=== PATIENT | female | born 1960 | race African-American/Black ===

== ENCOUNTER 2022-03-04 19:02 | Emergency (ER) | payer MEDICAID ==
[~2022-03-04] VITALS: Ht 172.7 cm; Wt 85.0 kg
[~2022-03-04 19:02] MED LIST: ASPI-1406; CENTRUM SILVER; PARO-41; SIMV10TA2; [UNRECOGNIZED DRUG - OTHER]; colace; lisinopril; tramadol
[2022-03-04 19:05] VITALS: BP 152/90
[2022-03-04 20:04] LABS: BASOPHILS % 0.3 % (0.0-2.0); EOSINOPHILS % 1.6 % (0.0-5.0); HEMATOCRIT. 41.5 % (36.0-48.0); HEMOGLOBIN. 13.7 g/dL (12.0-16.0); LYMPHOCYTES % 17.7 % (20.0-50.0); MEAN CORPUSCULAR HEMOGLOBIN 27.4 pg (28.0-32.0); MEAN CORPUSCULAR VOLUME 83.1 fL (81.0-99.0); MEAN PLATELET VOLUME 9.2 fl (7.4-10.4); MONOCYTES % 11.8 % (2.0-8.0); NEUTROPHILS % 68.6 % (40.0-76.0); PLATELET 292 x1000/uL (130-400); RED BLOOD CELL COUNT 4.99 mill/uL (4.2-5.4); RED CELL DISTRIBUTION WIDTH 15.6 % (11.6-14.6)
[2022-03-04 20:19] LABS: CHLORIDE 113 mEq/L (98-107)
[2022-03-04 20:25] LABS: ETHANOL BLOOD 119 mg/dL
[2022-03-04] MEDS ORDERED: POTASSIUM CHLORIDE 20MEQ TABLET SR PO ONE (20:45)
== END 2022-03-04 21:03 | disposition home or self-care (01) ==
LOC: ER 19:02
DX: T51.91XA Toxic effect of unspecified alcohol, accidental (unintentional), initial encounter (principal); E87.6 Hypokalemia; E11.9 Type 2 diabetes mellitus without complications; I25.2 Old myocardial infarction; Z88.6 Allergy status to analgesic agent; Z98.890 Other specified postprocedural states; Z86.73 Personal history of transient ischemic attack (TIA), and cerebral infarction without residual deficits; Z86.39 Personal history of other endocrine, nutritional and metabolic disease; I10 Essential (primary) hypertension; Y92.9 Unspecified place or not applicable
CPT/HCPCS: 36415; 80053; 80320; 85025; 93005; 99284; G0480

== ENCOUNTER 2025-06-29 15:18 | Emergency (ER) | payer MEDICARE, MEDICAID ==
[~2025-06-29] VITALS: Ht 160 cm; Wt 50.0 kg
[~2025-06-29 15:18] MED LIST changes: +AMLO5TAB88 MT; -ASPI-1406; +ASPI-1406 PO; +LEVO50TA8 MT; +SIMV-341 PO; -SIMV10TA2
[2025-06-29 15:30] VITALS: O2SAT 98
[2025-06-29 16:32] LABS: BASOPHILS % 0.4 % (0.0-2.0); EOSINOPHILS % 1.4 % (0.0-5.0); HEMATOCRIT. 36.6 % (36.0-48.0); HEMOGLOBIN. 12.0 g/dL (12.0-16.0); LYMPHOCYTES % 15.8 % (20.0-50.0); MEAN PLATELET VOLUME 9.2 fl (7.4-10.4); MONOCYTES % 11.4 % (2.0-8.0); NEUTROPHILS % 71.0 % (40.0-76.0); PLATELET 256 x1000/uL (130-400); RED BLOOD CELL COUNT 4.25 mill/uL (4.2-5.4); RED CELL DISTRIBUTION WIDTH 16.3 % (11.6-14.6)
[2025-06-29] MEDS: OXYCODONE HCL/ACETAMINOPHEN 5/325MG TABLET PO ONE (16:33)
[2025-06-29 16:50] LABS: UREA NITROGEN BLOOD 15.0 mg/dL (9-23)
[2025-06-29 16:56] LABS: CREATININE 1.5 mg/dL (0.6-1.0)
[2025-06-29] MEDS ORDERED: IBUP-2030 MT (18:25)
[2025-06-29] MEDS: HYDROCODONE/ACETAMINOPHEN 5/325MG TABLET PO ONE (18:36)
[2025-06-29 18:47] VITALS: BP 147/77; PULSE 61; RESP 16; TEMP 36.7; O2SAT 100
[2025-06-29 18:55] LABS: CLARITY URINE CLOUDY (CLEAR); COLOR URINE YELLOW (YELLOW)
[2025-06-29 18:58] LABS: SPECIFIC GRAVITY URINE >1.030 (1.005-1.030)
[2025-06-29 18:59] LABS: GLUCOSE URINE NEGATIVE (NEGATIVE); KETONES URINE TRACE (NEGATIVE); LEUKOCYTE ESTERASE URINE TRACE (NEGATIVE); NITRITE URINE POSITIVE (NEGATIVE); OCCULT BLOOD URINE 1+ (NEGATIVE); PH URINE 6.0 (4.5-8.0); PROTEIN URINE 2+ (NEGATIVE); UROBILINOGEN URINE 1.0 E.U./dL (0.2-1.0)
[2025-06-29 19:02] LABS: BACTERIA URINE 3+; SQUAMOUS EPITHELIAL CELL URINE RARE /lpf (RARE/1+); WBC URINE 50-100 /hpf (0-2)
[2025-06-29 19:03] LABS: MUCUS URINE 1+ /lpf (< = 2+)
== END 2025-06-29 18:53 | disposition home or self-care (01) ==
LOC: ER 15:18
DX: G89.29 Other chronic pain (principal); M54.9 Dorsalgia, unspecified; R10.32 Left lower quadrant pain; E11.9 Type 2 diabetes mellitus without complications; I10 Essential (primary) hypertension; E03.9 Hypothyroidism, unspecified; I25.2 Old myocardial infarction; F14.90 Cocaine use, unspecified, uncomplicated; Z86.73 Personal history of transient ischemic attack (TIA), and cerebral infarction without residual deficits; Z79.890 Hormone replacement therapy; Z98.890 Other specified postprocedural states
CPT/HCPCS: 36415; 74176; 80048; 81003; 85025; 87077; 87186; 99285

== ENCOUNTER 2025-09-04 09:16 | Emergency (ER) | payer MEDICARE, MEDICAID ==
[~2025-09-04] VITALS: Ht 167.6 cm; Wt 68.0 kg
[~2025-09-04 09:16] MED LIST changes: +IBUP-2030 MT
[2025-09-04 09:18] VITALS: O2SAT 98
[2025-09-04] MEDS: OXYCODONE HCL/ACETAMINOPHEN 5/325MG TABLET PO ONE (09:55)
[2025-09-04] MEDS ORDERED: OXYC-105 MT (11:33)
[2025-09-04] MEDS ORDERED: NALO4SPR BOTHNSTRLS (11:34)
[2025-09-04 11:45] VITALS: BP 140/88; PULSE 88; RESP 15; TEMP 36.9; O2SAT 99
== END 2025-09-04 11:46 | disposition home or self-care (01) ==
LOC: ER 09:16
DX: G89.4 Chronic pain syndrome (principal); M54.9 Dorsalgia, unspecified; E11.9 Type 2 diabetes mellitus without complications; I10 Essential (primary) hypertension; E03.9 Hypothyroidism, unspecified; Z86.73 Personal history of transient ischemic attack (TIA), and cerebral infarction without residual deficits
CPT/HCPCS: 72192; 73700; 99284

== ENCOUNTER 2025-09-21 12:36 | Emergency (ER) | payer MEDICARE, MEDICAID ==
[~2025-09-21] VITALS: Ht 167.6 cm; Wt 74.0 kg
[~2025-09-21 12:36] MED LIST changes: +NALO4SPR BOTHNSTRLS; +OXYC-105 MT
[2025-09-21 12:38] VITALS: O2SAT 97
[2025-09-21 14:52] VITALS: BP 109/70; PULSE 60; RESP 18; TEMP 36.7; O2SAT 99
== END 2025-09-21 16:38 | disposition left against medical advice (07) ==
LOC: ER 12:36
DX: M54.9 Dorsalgia, unspecified (principal); Z53.21 Procedure and treatment not carried out due to patient leaving prior to being seen by health care provider
CPT/HCPCS: 99281